=== PATIENT | female | born 1965 | race Caucasian/White ===

== ENCOUNTER 2020-09-18 06:08 | Emergency (ER) | payer BC, SELFPAY ==
--- NOTE | ~2020-09-18 | CT_ITS ---
EXAMINATION: CT facial bones wo con DATE: 09/18/2020 07:59 INDICATION: Face injury. TECHNIQUE: Computed tomography (CT) of the facial bones and maxillofacial region was performed withou t intravenous contrast. Automated exposure control and iterative reconstruction technique were employ ed. The dose-length product was 247.08 mGy-cm. COMPARISON: None. FINDINGS: The orbits are normal. The mastoid air cells are normal. There is mild mucosal thickening i n the paranasal sinuses. There are fractures of the nasal bones. There is rightward deviation of the nasal septum. There is mild cervical spondylosis. IMPRESSION: 1. Fractures of the nasal bones. Reviewed, dictated and finalized at location B. NIGHT
[2020-09-18 06:12] VITALS: BP 116/82; PULSE 76; RESP 15; TEMP 36.6; O2SAT 99
[2020-09-18] MEDS: IBUPROFEN 600 MG TABLET PO (08:39)
--- NOTE | 2020-09-18 09:07 | ED.FALL ---
HPI - Fall General Chief Complaint: Fall Stated Complaint: Tripped and fell while running Time Seen by Provider: 09/18/20 07:27 Source: patient Mode of arrival: ambulatory Limitations: no limitations History of Present Illness HPI Narrative: Patient had a fall while working out, complaining of nasal laceration. Patient denies other injuries. No loss of consciousness. No blood thinners. Related Data Allergies Allergy/AdvReac Type Severity Reaction Status Date / Time No Known Allergies Allergy Verified 09/18/20 06:15 Review of Systems Review of Systems: Narrative: CONSTITUTIONAL: Denies fever, chills, or sweats. EYES: Denies visual changes, redness, or discharge. ENT: Denies rhinorrhea, congestion, sore throat, or otalgia. CARDIOVASCULAR: Denies chest pain, palpitations, or edema. RESPIRATORY: Denies cough or dyspnea. GASTROINTESTINAL: Denies abdominal pain, nausea, vomiting, or diarrhea. GENITOURINARY: Denies dysuria or hematuria. SKIN: Denies rash or itching. MUSCULOSKELETAL: Denies back pain, joint pain, or myalgia. NEUROLOGIC: Denies headache, numbness, or weakness. PSYCHIATRIC: Denies anxiety or depression. Exam Narrative: Exam Narrative: General appearance: Well-developed, well-nourished Skin: Normal color Head: Normocephalic, nontraumatic Eyes: Clear conjunctiva ENT: Oropharynx normal, ears normal, 1 cm laceration across the nasal base, three-quarter centimeter gapping Neck: Supple, nontender Chest and respiratory: Airway patent, no respiratory distress, no accessory muscle use Heart: Regular rate/rhythm Musculoskeletal: Normal range of motion, nontender back Neurologic: Alert and oriented ?3, PROTECTIVE CLOTHING ISSUER is normal as tested, no gross motor deficit Course Course Emergency Course: 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 Mcpherson Planning to come to the emergency room for patient management Reevaluation(s) Reevaluation #1: Laceration was repaired by Dr. Mcpherson. Patient feeling great and ready to go home. Date: 09/18/20 Time: 13:04 Consultations Date: 09/18/20 Time: 09:09 Vital Signs Vital signs: Vital Signs Temperature 36.6 C 09/18/20 06:12 Pulse Rate 76 09/18/20 06:12 Respiratory Rate 15 09/18/20 06:12 Blood Pressure 116/82 09/18/20 06:12 Pulse Oximetry 99 09/18/20 06:12 Temperature 36.6 C 09/18/20 06:12 Pulse Rate 76 09/18/20 06:12 Respiratory Rate 15 09/18/20 06:12 Blood Pressure 116/82 09/18/20 06:12 Pulse Oximetry 99 09/18/20 06:12 MDM - Fall MDM Narrative Medical decision making narrative: Nasal laceration, status post fall, CT facial bones ordered, tetanus shot ordered. Dr. Mcpherson came to the emergency room and managed the patient. Critical Care Time Critical Care Time Critical Care Time: No Discharge Plan Discharge Clinical Impression: Closed fracture nasal bone Qualifiers: Encounter type: subsequent encounter Fracture healing: with nonunion Qualified Code(s): S02.2XXK - Fracture of nasal bones, subsequent encounter for fracture with nonunion Facial laceration Qualifiers: Encounter type: subsequent encounter Qualified Code(s): S01.81XD - Laceration without foreign body of other part of head, subsequent encounter Patient Disposition: Home, Self-Care Condition: Improved Instructions: Nasal Fracture (ED), Laceration (ED) Additional Instructions: Follow-up with Dr. Mcpherson as scheduled, topical Neosporin twice daily for 48 hours, you can shower, Tylenol, ibuprofen as needed. Follow-up/Referrals: Pablo Mcpherson MD [Physician] - PHYSICIAN,BOX COVERING MACHINE OPERATOR [Primary Care Provider] -
[2020-09-18] MEDS: TETANUS,DIPHTHERIA,AC PERTUSSIS ADULT (0.5 ML) BOOSTRIX IM (10:01)
[2020-09-18 13:16] VITALS: BP 115/76; PULSE 76; RESP 17; O2SAT 100
--- NOTE | 2020-09-18 17:41 | PM.PROC ---
Procedure Note - Detailed Date of procedure: 09/18/20 Pre-op diagnosis: Tripped and fell while running Open fracture laceration of the nose Post-op diagnosis: same Procedure performed: 2.2 cm intermediate repair of laceration of the nose Description of procedure: The patient is 55 she was out running around 530 this morning with a friend and tripped and fell on to her Face. She sustained a scrape over the nasal bridge and a laceration near the glabella. She is alert and very cooperative in the emergency room where I saw her. Her was present. She is in excellent health has no allergies to medications We discussed the wounds. I reviewed the CT scan which shows a small nasal fracture on the piriform aperture which is away from her skin laceration. The laceration is transverse but extends to the periosteum. The site had already been cleaned. There was no active bleeding and no foreign material that I could see I explained to her what we could do to improve the site and she wanted to proceed. The site was anesthetized with 1% lidocaine with epinephrine. It was cleaned further with Shur-Clens. The subcutaneous tissue was reapproximated with 5 0 Vicryl suture. The skin was reapproximated with 6 0 nylon suture. She was given instructions in wound care and follow-up no prescriptions were given.She was turned back to the emergency room physician for the discharge. Surgeon: Pablo Mcpherson MD
== END 2020-09-18 13:17 | disposition home or self-care (01) ==
PROVIDERS: Emergency Provider Emergency Medicine
DX: S02.2XXA Fracture of nasal bones, initial encounter for closed fracture (principal); S01.81XA Laceration without foreign body of other part of head, initial encounter; W01.0XXA Fall on same level from slipping, tripping and stumbling without subsequent striking against object, initial encounter; Z23 Encounter for immunization
CPT/HCPCS: 70486; 90471; 90715; 99284; A9270